=== PATIENT | female | born 1965 ===

== ENCOUNTER 2019-01-29 12:51 | Observation (INO) | payer MEDICAID ==
[2019-01-29 13:21] LABS: BASO # 0.05 K/mm3 (0.0-2.0); BASO % 0.7 % (0.0-3.0); EOS # 0.2 (0.0-0.7); EOS % 3.1 % (1.5-5.0); HEMOGLOBIN 10.4 g/dL (12.0-16.0); LYMPH # 1.8 (1.2-3.4); LYMPH % 25.7 % (22.0-35.0); MEAN CELL VOLUME 80.7 fl (80.0-105.0); MEAN CORPUSCULAR HEMOGLOBIN 24.8 pg (25.0-35.0); MEAN CORPUSCULAR HGB CONC 30.8 g/dl (31.0-37.0); MEAN PLATELET VOLUME 9.4 fl (7.0-11.0); MONO # 0.4 (0.1-0.6); RBC 4.19 10^6/uL (3.5-6.1); WHITE BLOOD COUNT 6.8 10^3/uL (4.5-11.0)
[2019-01-29 13:28] LABS: INR 1.08; PARTIAL THROMBOPLASTIN TIME 27.7 Seconds (26.9-38.3); PROTHROMBIN TIME 12.2 SECONDS (9.4-12.5)
[2019-01-29 13:30] LABS: ALB/GLOB RATIO 1.2 (1.1-1.8); ALBUMIN 4.1 g/dL (3.0-4.8); ALT/SGPT 20 U/L (7-56); AST/SGOT 25 U/L (14-36); BLOOD UREA NITROGEN 18 mg/dL (7-21); CALCIUM 9.5 mg/dL (8.4-10.5); GFR NON-AFRICAN AMERICAN > 60; HDL CHOLESTEROL 81 mg/dL (29-60)
--- NOTE | 2019-01-29 13:34 | CT ---
Date of service: 01/29/2019 PROCEDURE: CT HEAD WITHOUT CONTRAST. HISTORY: Code Stroke COMPARISON: None available. TECHNIQUE: Axial computed tomography images were obtained through the head/brain without intravenous contrast. Radiation dose: Total exam DLP = 802.55 mGy-cm. This CT exam was performed using one or more of the following dose reduction techniques: Automated exposure control, adjustment of the mA and/or kV according to patient size, and/or use of iterative reconstruction technique. FINDINGS: HEMORRHAGE: No intracranial hemorrhage. BRAIN: No mass effect or edema. No atrophy or chronic microvascular ischemic changes. VENTRICLES: Unremarkable. No hydrocephalus. CALVARIUM: Unremarkable. PARANASAL SINUSES: Unremarkable as visualized. No significant inflammatory changes. MASTOID AIR CELLS: Unremarkable as visualized. No inflammatory changes. OTHER FINDINGS: None. IMPRESSION: No acute intracranial findings
--- NOTE | 2019-01-29 13:36 | ED PDOC ---
Arrival/HPI - General Chief Complaint: Palpitations Time Seen by Provider: 01/29/19 12:54 Historian: Patient - History of Present Illness Narrative History of Present Illness (Text): 01/29/19 12:58 53 year old F with no significant pmh presents with cc of chest palpations w/ dry mouth since this morning. Patient reports that this morning she felt like her heart started racing for around 15 mins. It went away and returned for a shorter duration after. Per daughter, her mom appeared to respond to questions slower than she usually do. Her friend arrived that was with her when this occurred. She said that patient sounded different when she was talking and also was apparently confused a little bit. Patient mentioned that she went to her PCP weeks ago where it was found her blood pressure was high at the time. The patient agreed to monitor blood pressure. Patient denies any fevers, chills, headache, dizziness, chest pain, shortness of breath, cough, nausea, vomiting, nasal congestion, or any other complaint. 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 PCP: Dr. Tammy Hurst Time/Duration: 4-6 hours Symptom Onset: Sudden Symptom Course: Unchanged Activities at Onset: Light Context: Home Past Medical History - Provider Review Nursing Documentation Reviewed: Yes - Infectious Disease Hx of Infectious Diseases: None - Reproductive Menopause: Yes - Psychiatric Hx Substance Use: No Family/Social History - Physician Review Nursing Documentation Reviewed: Yes Family/Social History: Unknown Family HX Smoking Status: Never Smoked Hx Alcohol Use: No Hx Substance Use: No Allergies/Home Meds Allergies/Adverse Reactions: Allergies No Known Allergies Allergy (Verified 01/29/19 12:53) Home Medications: Home Meds Medication Instructions Recorded Confirmed No Known Home Med 01/29/19 01/29/19 Review of Systems - Physician Review All systems were reviewed & negative as marked: Yes - Review of Systems Constitutional: Normal Eyes: Normal ENT: Other (dry mouth) Respiratory: Normal Cardiovascular: Palpitations Gastrointestinal: Normal Genitourinary Female: Normal Musculoskeletal: Normal Skin: Normal Neurological: Speech Changes Endocrine: Normal Hemo/Lymphatic: Normal Psychiatric: Normal Physical Exam Vital Signs Temp Pulse Resp BP Pulse Ox 01/29/19 12:51 97.5 F L 98 H 18 182/91 H 100 Temperature: Afebrile Blood Pressure: Hypertensive Pulse: Regular Respiratory Rate: Normal Appearance: Positive for: Non-Toxic, Comfortable, Ill-Appearing Pain Distress: None Mental Status: Positive for: Alert and Oriented X 3 Finger Stick Blood Glucose: 123 - Systems Exam Head: Present: Atraumatic, Normocephalic Pupils: Present: PERRL Extroacular Muscles: Present: EOMI Conjunctiva: Present: Normal Neck: Present: Normal Range of Motion Respiratory/Chest: Present: Clear to Auscultation, Good Air Exchange. No: Respiratory Distress, Accessory Muscle Use Cardiovascular: Present: Regular Rate and Rhythm, Normal S1, S2. No: Murmurs Abdomen: No: Tenderness, Distention, Peritoneal Signs Back: Present: Normal Inspection Upper Extremity: Present: Normal Inspection. No: Cyanosis, Edema Lower Extremity: Present: Normal Inspection. No: Edema Neurological: Present: GCS=15, CN II-XII Intact, Speech Normal Skin: Present: Warm, Dry, Normal Color. No: Rashes Psychiatric: Present: Alert, Oriented x 3, Normal Insight, Normal Concentration Medical Decision Making ED Course and Treatment: 01/29/19 12:58 Impression: 53 year old F presents with cc of chest palpations w/ dry mouth, confusion and trouble speaking since 11:30am Differential Diagnosis included but are not limited to: TIA Plan: -- EKG -- Labs -- Chest X-ray -- Stroke team consult -- Reassess and disposition Prior Visits: Notes and results from previous visits were reviewed. Progress Notes: 01/29/19 13:03 Code stroke was called Case discussed with Dr. Lantigua Neurologist. The NIHSS is Zero. After she returned from CT her symptoms improved. Patient states she no longer felt has confusion or trouble speaking, just a dry mouth that's better as well. Still no weakess or numbness. We agreed that patient does not warrant tPA at this time due to symptoms almost completely resolved and rapidly improving. Will give aspirin 81mg PO. 01/29/19 13:15 NSR @ 84 bpm, nml qrs, nml axis, no motion artifect, no acute sttw abn. Case was discussed with 01/29/19 14:04 Dr Lantigua came to evaluate patient and he would also like to add Plavix 300mg PO, NS at 100ml/hr and permissive hypertension. He placed her head down. He ordered an MRI that he will follow. Creator : Siddhartha Higuera MD PROCEDURE: CT HEAD WITHOUT CONTRAST. IMPRESSION: No acute intracranial findings - Lab Interpretations Lab Results: PT 12.2 SECONDS (9.4-12.5) 01/29/19 13:10 INR 1.08 01/29/19 13:10 APTT 27.7 Seconds (26.9-38.3) 01/29/19 13:10 Total Bilirubin 0.2 mg/dL (0.2-1.3) 01/29/19 13:10 AST 25 U/L (14-36) 01/29/19 13:10 ALT 20 U/L (7-56) 01/29/19 13:10 Alkaline Phosphatase 76 U/L (38-126) 01/29/19 13:10 Total Protein 7.4 g/dL (5.8-8.3) 01/29/19 13:10 Albumin 4.1 g/dL (3.0-4.8) 01/29/19 13:10 Globulin 3.3 gm/dL 01/29/19 13:10 Albumin/Globulin Ratio 1.2 (1.1-1.8) 01/29/19 13:10 - RAD Interpretation Radiology Orders: 01/29/19 13:04 HEAD W/O (CODE STROKE) [CT] Stat CHEST PORTABLE [RAD] Stat NIHSS Scale ([place]) Time Performed: 12:54 - How Severe is the Stoke Baseline Level of Consciousness: 0=Alert LOC to Questions: 0=Both comments correct LOC to commands: 0=Obeys both correctly Best Gaze: 0=Normal Visual: 0=No visual loss Facial: 0=Normal Motor Arm - Left: 0=No drift Motor Arm - Right: 0=No drift Motor Leg - Left: 0=No drift Motor Leg - Right: 0=No drift Limb Ataxia: 0=Absent Sensory: 0=Normal Best Language: 0=No aphasia Dysarthia: 0=Normal articulation Extinction & Inattention (Neglect): 0=Normal, no object Score: 0 Risk Level: No Stroke Risk rTPA Inclusion/Exclusion - Refusal of Treatment Patient Refused Treatment: No - Inclusion Criteria for Altepase All of the below criteria for inclusion were reviewed: Yes Patient is 18 years or Older: Yes The Clinical Diagnosis of Ischemic Stroke That is Causing a Potentially Disabling Neurological Deficit: Yes Time of Onset is Well Established to be Less Than 270 Minute Before Treatment Would Begin: Yes Risk/Benefit Discussed With Patient/Family Member Present: No - Scribe Statement The provider has reviewed the documentation as recorded by the Corie Amos All medical record entries made by the Corie were at my direction and personally dictated by me. I have reviewed the chart and agree that the record accurately reflects my personal performance of the history, physical exam, medical decision making, and the department course for this patient. I have also personally directed, reviewed, and agree with the discharge instructions and disposition. Disposition/Present on Arrival - Present on Arrival Any Indicators Present on Arrival: No History of DVT/PE: No History of Uncontrolled Diabetes: No Urinary Catheter: No History of Decub. Ulcer: No History Surgical Site Infection Following: None - Disposition Have Diagnosis and Disposition been Completed?: Yes Diagnosis: TIA (transient ischemic attack) Disposition: HOSPITALIZED Disposition Time: 13:46 Patient Plan: Observation Condition: FAIR
[2019-01-29 13:41] LABS: LDL CHOLESTEROL 73 mg/dL (0-129)
[2019-01-29 13:44] LABS: TROPONIN I < 0.01 ng/mL
[2019-01-29] MEDS: Sodium Chloride 0.9% 1,000 ML IV SCH ×2 (14:10→23:59)
--- NOTE | 2019-01-29 14:22 | RAD ---
Date of service: 01/29/2019 HISTORY: Code Stroke COMPARISON: No prior. TECHNIQUE: 1 view obtained. FINDINGS: LUNGS: No active pulmonary disease. PLEURA: No significant pleural effusion identified, no pneumothorax apparent. CARDIOVASCULAR: Minimal aortic calcification Normal cardiac size. No pulmonary vascular congestion. OSSEOUS STRUCTURES: No significant abnormalities. VISUALIZED UPPER ABDOMEN: Normal. OTHER FINDINGS: None. IMPRESSION: No active disease.
--- NOTE | 2019-01-29 14:24 | CP.PCM.HP ---
<Gunner Prince - Last Filed: 01/29/19 15:26> History of Present Illness - History of Present Illness History of Present Illness: Medicine H&P for Dr. Marshall HPI: 53 year old female, no known significant past medical history, presents to our emergency department with new onset palpitations and lightheadedness that started this morning. Patient states around 10:40AM she was at work and noticed she was having difficulty balancing herself and felt lightheaded, she denied any loss of consciousness of fall. Her heart began racing and when attempting to speak to her coworker she had difficulty projecting her voice. She does not endorse facial drooping, headaches, blurred or changes in vision, chest pain, or shortness of breath. She has never experienced symptoms like this before. Recently, she went to her PMD, Dr. Hurst, where she was noted to have elevated blood pressure (she does not remember how high). At that time her PMD did not start any medication but recommended patient check her blood pressures and follow up regarding initiation of new medications. She states her blood pressu res have not been elevated. ROS negative, except that states in HPI. PMH: Denies PSH: Breast reduction, Gastric bypass FH: No history of stroke or SC in family. No history of cancer. SH: Denies tobacco, alcohol and drugs. Lives at home with children and . Works in [employer]. ALL: NKDA Meds: Multivitamins PMD: Dr. Hurst Present on Admission - Present on Admission Any Indicators Present on Admission: No Review of Systems - Constitutional Constitutional: absent: Chills, Fever, Headache, Weakness - EENT Eyes: absent: Blurred Vision, Change in Vision, Other Visual Disturbances, Loss of Vision Nose/Mouth/Throat: absent: Nasal Congestion, Nasal Discharge - Cardiovascular Cardiovascular: Palpitations, Rapid Heart Rate. absent: Chest Pain, Dyspnea, Leg Edema - Respiratory Respiratory: absent: Cough, Dyspnea - Gastrointestinal Gastrointestinal: absent: Abdominal Pain, Nausea, Vomiting - Genitourinary Genitourinary: absent: Difficulty Urinating, Dysuria - Musculoskeletal Musculoskeletal: absent: Back Pain, Neck Pain - Integumentary Integumentary: absent: Bleeding Lesions, Changing Lesions - Neurological Neurological: Abnormal Gait, Abnormal Speech, Lack of Coordination. absent: Confusion, Dizziness, Numbness, Focal Weakness, Headaches, Loss of Vision, Memory Loss, Sensory Deficit, Syncope, Tremor, Vertigo, Weakness - Psychiatric Psychiatric: absent: Anxiety, Depression Past Patient History - Infectious Disease Hx of Infectious Diseases: None - Past Social History Smoking Status: Never Smoked - PSYCHIATRIC Hx Substance Use: No Meds Allergies/Adverse Reactions: Allergies Allergy/AdvReac Type Severity Reaction Status Date / Time No Known Allergies Allergy Verified 01/29/19 12:53 Physical Exam - Constitutional Appears: Well, Non-toxic, No Acute Distress - Head Exam Head Exam: ATRAUMATIC, NORMAL INSPECTION, NORMOCEPHALIC - Eye Exam Eye Exam: EOMI - ENT Exam ENT Exam: Mucous Membranes Moist - Neck Exam Neck exam: Positive for: Full Rom, Normal Inspection - Respiratory Exam Respiratory Exam: NORMAL BREATHING PATTERN. absent: Wheezes, Respiratory Distress - Cardiovascular Exam Cardiovascular Exam: Tachycardia, REGULAR RHYTHM, +S1, +S2. absent: Systolic Murmur - GI/Abdominal Exam GI & Abdominal Exam: Normal Bowel Sounds, Soft. absent: Tenderness - Extremities Exam Extremities exam: Positive for: normal inspection, pedal pulses present. Negative for: calf tenderness, pedal edema - Neurological Exam Neurological exam: Alert, CN II-XII Intact, Oriented x3 - Expanded Neurological Exam Expanded Patient oriented to: person, place, time Speech: Fluid Speech Cranial nerves: EOM's Intact: Normal, Facial Palsey w/Forehead Movement: Normal, Facial P[place]y w/o Forehead Movement: Normal, Facial Sensation: Normal, Nystagmus: Normal, Tongue Deviation: Normal Ataxia: No Cerebellar Function: Finger to Nose: Normal, Heel to [place]: Normal Upper motor neuron: Babinski Sign: Normal, Pronator Drift: Normal, Sensory Extinction: Normal Sensory exam: Lower Extremity 2 Point Discrimination: Normal, Lower Extremity Light Touch: Normal, Lower Extremity Pin Prick: Normal, Upper Extremity 2 Point Discrimination: Normal, Upper Extremity Light Touch: Normal, Upper Extremity Pin Prick: Normal Neuro motor strength exam: Left Upper Extremity: 5, Right Upper Extremity: 5, Left Lower Extremity: 5, Right Lower Extremity: 5 Coma Scale Eye Opening: SPONTANEOUS Coma Scale Motor Response: OBEYS COMMANDS Coma Scale Verbal: Oriented Coma Scale Total: 15 - Psychiatric Exam Psychiatric exam: Normal Affect, Normal Mood - Skin Skin Exam: Dry, Intact, Normal Color, Warm Results - Vital Signs Recent Vital Signs: Last Vital Signs Temp 97.5 F L 03/27/19 12:51 Pulse 89 01/29/19 13:39 Resp 22 01/29/19 13:39 BP 148/89 01/29/19 13:39 Pulse Ox 100 01/29/19 13:39 - Labs Result Diagrams: 01/29/19 13:10 01/29/19 13:10 Labs: Laboratory Results - last 24 hr 01/29/19 01/29/19 01/29/19 13:07 13:10 13:10 WBC 6.8 RBC 4.19 Hgb 10.4 L Hct 33.8 L MCV 80.7 MCH 24.8 L MCHC 30.8 L RDW 16.0 H Plt Count 410 MPV 9.4 Neut % (Auto) 64.5 Lymph % (Auto) 25.7 Creek % (Auto) 6.0 Eos % (Auto) 3.1 Baso % (Auto) 0.7 Lymph # (Auto) 1.8 Creek # (Auto) 0.4 Eos # (Auto) 0.2 Baso # (Auto) 0.05 Absolute Neuts (auto) 4.40 PT 12.2 INR 1.08 APTT 27.7 Sodium Potassium Chloride Carbon Dioxide Anion Gap BUN Creatinine Est GFR ( Amer) Est GFR (Non-Af Amer) POC Glucose (mg/dL) 123 H Random Glucose Calcium Total Bilirubin AST ALT Alkaline Phosphatase Troponin I Total Protein Albumin Globulin Albumin/Globulin Ratio Triglycerides Cholesterol LDL Cholesterol Direct HDL Cholesterol 01/29/19 13:10 WBC RBC Hgb Hct MCV MCH MCHC RDW Plt Count MPV Neut % (Auto) Lymph % (Auto) Creek % (Auto) Eos % (Auto) Baso % (Auto) Lymph # (Auto) Creek # (Auto) Eos # (Auto) Baso # (Auto) Absolute Neuts (auto) PT INR APTT Sodium 137 Potassium 4.6 Chloride 100 Carbon Dioxide 28 Anion Gap 13 BUN 18 Creatinine 0.6 L Est GFR ( Amer) > 60 Est GFR (Non-Af Amer) > 60 POC Glucose (mg/dL) Random Glucose 131 H Calcium 9.5 Total Bilirubin 0.2 AST 25 ALT 20 Alkaline Phosphatase 76 Troponin I < 0.01 Total Protein 7.4 Albumin 4.1 Globulin 3.3 Albumin/Globulin Ratio 1.2 Triglycerides 45 Cholesterol 158 LDL Cholesterol Direct 73 HDL Cholesterol 81 H Assessment & Plan - Assessment and Plan (Free Text) Assessment: 53F with no known significant past medical history, presents to our emergency department with lightheadedness and palpitations, admitted for stroke rule out. Plan: Code Stroke - EKG 01/29: NSR w/ no ST/T wave changes - CXR 01/29: no active disease - CT head 01/29: no intracranial abnormalities - Aspirin 81mg QD - Lipitor 40mg QD - CBC, CMP, and lipid panel within normal limits - F/u MRA neck - F/u MRI brain - F/u MRA head - F/u ECHO - F/u EEG study - F/u A1c, B12/Folate, TSH, T4, Vit D, Homocysteine levels - Fall and aspiration precautions - Formal swallow evaluation - Neurology following PPX DVT: SCDs GI: Not indicated at this time Patient plan reviewed and discussed with Dr. Joanna Prince PGY1 <Conrado Marshall - Last Filed: 01/29/19 17:34> Results - Vital Signs Recent Vital Signs: Last Vital Signs Temp 97.5 F L 01/29/19 12:51 Pulse 78 01/29/19 16:55 Resp 18 01/29/19 16:55 BP 135/87 01/29/19 16:17 Pulse Ox 98 01/29/19 16:17 - Labs Result Diagrams: 01/29/19 13:10 01/29/19 13:10 Labs: Laboratory Results - last 24 hr 01/29/19 01/29/19 01/29/19 13:07 13:10 13:10 WBC 6.8 RBC 4.19 Hgb 10.4 L Hct 33.8 L MCV 80.7 MCH 24.8 L MCHC 30.8 L RDW 16.0 H Plt Count 410 MPV 9.4 Neut % (Auto) 64.5 Lymph % (Auto) 25.7 Creek % (Auto) 6.0 Eos % (Auto) 3.1 Baso % (Auto) 0.7 Lymph # (Auto) 1.8 Creek # (Auto) 0.4 Eos # (Auto) 0.2 Baso # (Auto) 0.05 Absolute Neuts (auto) 4.40 PT 12.2 INR 1.08 APTT 27.7 Sodium Potassium Chloride Carbon Dioxide Anion Gap BUN Creatinine Est GFR ( Amer) Est GFR (Non-Af Amer) POC Glucose (mg/dL) 123 H Random Glucose Hemoglobin A1c Calcium Total Bilirubin AST ALT Alkaline Phosphatase Troponin I Total Protein Albumin Globulin Albumin/Globulin Ratio Triglycerides Cholesterol LDL Cholesterol Direct HDL Cholesterol Free T4 TSH 3rd Generation BBK History Checked 01/29/19 01/29/19 01/29/19 13:10 13:10 14:30 WBC RBC Hgb Hct MCV MCH MCHC RDW Plt Count MPV Neut % (Auto) Lymph % (Auto) Creek % (Auto) Eos % (Auto) Baso % (Auto) Lymph # (Auto) Creek # (Auto) Eos # (Auto) Baso # (Auto) Absolute Neuts (auto) PT INR APTT Sodium 137 Potassium 4.6 Chloride 100 Carbon Dioxide 28 Anion Gap 13 BUN 18 Creatinine 0.6 L Est GFR ( Amer) > 60 Est GFR (Non-Af Amer) > 60 POC Glucose (mg/dL) Random Glucose 131 H Hemoglobin A1c 5.9 Calcium 9.5 Total Bilirubin 0.2 AST 25 ALT 20 Alkaline Phosphatase 76 Troponin I < 0.01 Total Protein 7.4 Albumin 4.1 Globulin 3.3 Albumin/Globulin Ratio 1.2 Triglycerides 45 Cholesterol 158 LDL Cholesterol Direct 73 HDL Cholesterol 81 H Free T4 0.84 TSH 3rd Generation 1.32 BBK History Checked 01/29/19 15:39 WBC RBC Hgb Hct MCV MCH MCHC RDW Plt Count MPV Neut % (Auto) Lymph % (Auto) Creek % (Auto) Eos % (Auto) Baso % (Auto) Lymph # (Auto) Creek # (Auto) Eos # (Auto) Baso # (Auto) Absolute Neuts (auto) PT INR APTT Sodium Potassium Chloride Carbon Dioxide Anion Gap BUN Creatinine Est GFR ( Amer) Est GFR (Non-Af Amer) POC Glucose (mg/dL) Random Glucose Hemoglobin A1c Calcium Total Bilirubin AST ALT Alkaline Phosphatase Troponin I Total Protein Albumin Globulin Albumin/Globulin Ratio Triglycerides Cholesterol LDL Cholesterol Direct HDL Cholesterol Free T4 TSH 3rd Generation BBK History Checked No verified bt Attending/Attestation - Attestation I have personally seen and examined this patient.: Yes I have fully participated in the care of the patient.: Yes I have reviewed all pertinent clinical information: Yes Notes (Text): 01/29/19 17:29 53 year old female with past medical history of ?recently diagnosed hypertension, not on any medications, who presented with complaint of transient confusion, trouble with speech and palpitations, now resolved. Admitted for possible TIA r/o CVA. CT head is negative for acute findings. Neurology evaluation was appreciated and patient received aspirin and plavix in ER. Started on statin. Ordered for MRI/MRA, echocardiogram and PT evaluation. Will obtain TSH and monitor on telemetry unit. BP was initially elevated but improved without medications. Will monitor for now. Conrado Marshall MD Hospitalist.
[2019-01-29 15:02] LABS: FREE T4 0.84 ng/dL (0.78-2.19)
--- NOTE | 2019-01-29 16:00 | CP.PCM.CON ---
<Ellis Connelly - Last Filed: 01/29/19 16:08> History of Present Illness - History of Present Illness History of Present Illness: Ellis Connelly PGY2 Neurology Consult Note for Dr. Lantigua Consult requested by: Dr. Casillas 53 year old female with no known significant past medical history, presented with confusion, trouble speaking and slight facial droop. Family at bedside stated patient was unable to speak normally and seemed confused earlier today around 11am. Patient states she felt confused and it was hard for her to express what she wanted to say. She also felt has her balance was off. She never had symptoms like this before. She was also noted to have elevated blood pressure in the ED. She states her symptoms have improved. Patient denies headaches, change in vision, chest pain, palpitations or any other complaints at this time. PMH: Denies PSH: Breast reduction, Gastric bypass FH: No history of stroke or MS in family. No history of cancer. SH: Denies tobacco, alcohol and drugs. Lives at home with children and . Works in [employer]. ALL: NKDA Meds: Multivitamins PMD: Dr. Hurst Review of Systems - Constitutional Constitutional: absent: Excessive Sweating, Headache, Weakness - Cardiovascular Cardiovascular: absent: Chest Pain, Lightheadedness, Palpitations - Respiratory Respiratory: absent: Dyspnea - Gastrointestinal Gastrointestinal: absent: Nausea, Vomiting - Neurological Neurological: Disequilibrium. absent: Confusion, Numbness, Loss of Vision, Paresthesias, Sensory Deficit, Syncope, Tingling, Weakness Past Patient History - Infectious Disease Hx of Infectious Diseases: None - Past Social History Smoking Status: Never Smoked - PSYCHIATRIC Hx Substance Use: No Meds Allergies/Adverse Reactions: Allergies Allergy/AdvReac Type Severity Reaction Status Date / Time No Known Allergies Allergy Verified 01/29/19 12:53 - Medications Medications: Current Medications Aspirin (Ecotrin) 81 mg PO DAILY EJ Atorvastatin Calcium (Lipitor) 40 mg PO DAILY EJ Sodium Chloride (Sodium Chloride 0.9%) 1,000 mls @ 100 mls/hr IV .Q10H EJ Last Admin: 01/29/19 14:10 Dose: 100 mls/hr Physical Exam - Constitutional Appears: Non-toxic, No Acute Distress - Head Exam Head Exam: ATRAUMATIC, NORMAL INSPECTION, NORMOCEPHALIC - Eye Exam Eye Exam: EOMI, Normal appearance, PERRL - Respiratory Exam Respiratory Exam: Clear to Auscultation Bilateral, NORMAL BREATHING PATTERN - Cardiovascular Exam Cardiovascular Exam: REGULAR RHYTHM, +S1, +S2 - GI/Abdominal Exam GI & Abdominal Exam: Soft - Extremities Exam Extremities exam: Positive for: full ROM, pedal pulses present. Negative for: pedal edema - Neurological Exam Neurological exam: Alert, CN II-XII Intact, Oriented x3 Additional comments: Slight right sided facial droop, right pronator drift, reflexes brisk B/L, upper and lower extremity strength 5/5 B/L, normal sensation, Results - Vital Signs Recent Vital Signs: Last Vital Signs Temp 97.5 F L 01/29/19 12:51 Pulse 75 01/29/19 15:00 Resp 17 01/29/19 15:00 BP 135/87 01/29/19 15:00 Pulse Ox 99 01/29/19 15:00 - Labs Result Diagrams: 01/29/19 13:10 01/29/19 13:10 Labs: Laboratory Results - last 24 hr 01/29/19 01/29/19 01/29/19 13:07 13:10 13:10 WBC 6.8 RBC 4.19 Hgb 10.4 L Hct 33.8 L MCV 80.7 MCH 24.8 L MCHC 30.8 L RDW 16.0 H Plt Count 410 MPV 9.4 Neut % (Auto) 64.5 Lymph % (Auto) 25.7 [place] % (Auto) 6.0 Eos % (Auto) 3.1 Baso % (Auto) 0.7 Lymph # (Auto) 1.8 [place] # (Auto) 0.4 Eos # (Auto) 0.2 Baso # (Auto) 0.05 Absolute Neuts (auto) 4.40 PT 12.2 INR 1.08 APTT 27.7 Sodium Potassium Chloride Carbon Dioxide Anion Gap BUN Creatinine Est GFR ( Amer) Est GFR (Non-Af Amer) POC Glucose (mg/dL) 123 H Random Glucose Hemoglobin A1c Calcium Total Bilirubin AST ALT Alkaline Phosphatase Troponin I Total Protein Albumin Globulin Albumin/Globulin Ratio Triglycerides Cholesterol LDL Cholesterol Direct HDL Cholesterol Free T4 TSH 3rd Generation 01/29/19 01/29/19 01/29/19 13:10 13:10 14:30 WBC RBC Hgb Hct MCV MCH MCHC RDW Plt Count MPV Neut % (Auto) Lymph % (Auto) [place] % (Auto) Eos % (Auto) Baso % (Auto) Lymph # (Auto) [place] # (Auto) Eos # (Auto) Baso # (Auto) Absolute Neuts (auto) PT INR APTT Sodium 137 Potassium 4.6 Chloride 100 Carbon Dioxide 28 Anion Gap 13 BUN 18 Creatinine 0.6 L Est GFR ( Amer) > 60 Est GFR (Non-Af Amer) > 60 POC Glucose (mg/dL) Random Glucose 131 H Hemoglobin A1c 5.9 Calcium 9.5 Total Bilirubin 0.2 AST 25 ALT 20 Alkaline Phosphatase 76 Troponin I < 0.01 Total Protein 7.4 Albumin 4.1 Globulin 3.3 Albumin/Globulin Ratio 1.2 Triglycerides 45 Cholesterol 158 LDL Cholesterol Direct 73 HDL Cholesterol 81 H Free T4 0.84 TSH 3rd Generation 1.32 Assessment & Plan - Assessment and Plan (Free Text) Plan: TIA rule out Stroke - EKG NSR w/ no ST/T wave changes - CT head: no intracranial abnormalities - MRA head and neck bundle - MRI brain - ECHO - EEG - Aspirin 81mg - Plavix 300mg - Lipitor 40mg - NS@100 - lipid panel within normal limits - A1c, B12/Folate, TSH, T4, Vit D, Homocysteine - Fall and aspiration precautions - Formal swallow evaluation - permissive HTN - continue to monitor <Nile Lantigua - Last Filed: 01/29/19 18:59> Meds - Medications Medications: Current Medications Aspirin (Ecotrin) 81 mg PO DAILY EJ Atorvastatin Calcium (Lipitor) 40 mg PO DAILY [facility] Sodium Chloride (Sodium Chloride 0.9%) 1,000 mls @ 100 mls/hr IV .Q10H EJ Last Admin: 01/29/19 14:10 Dose: 100 mls/hr Results - Vital Signs Recent Vital Signs: Last Vital Signs Temp 98.3 F 01/29/19 18:00 Pulse 73 01/29/19 18:00 Resp 18 01/29/19 18:00 BP 144/76 01/29/19 18:00 Pulse Ox 98 01/29/19 16:17 - Labs Result Diagrams: 01/29/19 13:10 01/29/19 13:10 Labs: Laboratory Results - last 24 hr 01/29/19 01/29/19 01/29/19 13:07 13:10 13:10 WBC 6.8 RBC 4.19 Hgb 10.4 L Hct 33.8 L MCV 80.7 MCH 24.8 L MCHC 30.8 L RDW 16.0 H Plt Count 410 MPV 9.4 Neut % (Auto) 64.5 Lymph % (Auto) 25.7 [place] % (Auto) 6.0 Eos % (Auto) 3.1 Baso % (Auto) 0.7 Lymph # (Auto) 1.8 [place] # (Auto) 0.4 Eos # (Auto) 0.2 Baso # (Auto) 0.05 Absolute Neuts (auto) 4.40 PT 12.2 INR 1.08 APTT 27.7 Sodium Potassium Chloride Carbon Dioxide Anion Gap BUN Creatinine Est GFR ( Amer) Est GFR (Non-Af Amer) POC Glucose (mg/dL) 123 H Random Glucose Hemoglobin A1c Calcium Total Bilirubin AST ALT Alkaline Phosphatase Troponin I Total Protein Albumin Globulin Albumin/Globulin Ratio Triglycerides Cholesterol LDL Cholesterol Direct HDL Cholesterol Free T4 TSH 3rd Generation Blood Type Antibody Screen BBK History Checked 01/29/19 01/29/19 01/29/19 13:10 13:10 14:30 WBC RBC Hgb Hct MCV MCH MCHC RDW Plt Count MPV Neut % (Auto) Lymph % (Auto) [place] % (Auto) Eos % (Auto) Baso % (Auto) Lymph # (Auto) [place] # (Auto) Eos # (Auto) Baso # (Auto) Absolute Neuts (auto) PT INR APTT Sodium 137 Potassium 4.6 Chloride 100 Carbon Dioxide 28 Anion Gap 13 BUN 18 Creatinine 0.6 L Est GFR ( Amer) > 60 Est GFR (Non-Af Amer) > 60 POC Glucose (mg/dL) Random Glucose 131 H Hemoglobin A1c 5.9 Calcium 9.5 Total Bilirubin 0.2 AST 25 ALT 20 Alkaline Phosphatase 76 Troponin I < 0.01 Total Protein 7.4 Albumin 4.1 Globulin 3.3 Albumin/Globulin Ratio 1.2 Triglycerides 45 Cholesterol 158 LDL Cholesterol Direct 73 HDL Cholesterol 81 H Free T4 0.84 TSH 3rd Generation 1.32 Blood Type Antibody Screen BBK History Checked 01/29/19 15:39 WBC RBC Hgb Hct MCV MCH MCHC RDW Plt Count MPV Neut % (Auto) Lymph % (Auto) [place] % (Auto) Eos % (Auto) Baso % (Auto) Lymph # (Auto) [place] # (Auto) Eos # (Auto) Baso # (Auto) Absolute Neuts (auto) PT INR APTT Sodium Potassium Chloride Carbon Dioxide Anion Gap BUN Creatinine Est GFR ( Amer) Est GFR (Non-Af Amer) POC Glucose (mg/dL) Random Glucose Hemoglobin A1c Calcium Total Bilirubin AST ALT Alkaline Phosphatase Troponin I Total Protein Albumin Globulin Albumin/Globulin Ratio Triglycerides Cholesterol LDL Cholesterol Direct HDL Cholesterol Free T4 TSH 3rd Generation Blood Type B NEGATIVE Antibody Screen Negative BBK History Checked No verified bt Attending/Attestation - Attestation I have personally seen and examined this patient.: Yes I have fully participated in the care of the patient.: Yes I have reviewed all pertinent clinical information: Yes Notes (Text): I agree with the assessment and plan. Will continue management and work-up for possible ischemic stroke or TIA. Thank you for this consultation.
[2019-01-29 17:15] VITALS: BMI 25.9
--- NOTE | 2019-01-29 18:46 | CARD ---
APPROVED REPORT Date of service: 01/29/2019 EKG Measurement Heart [id number] MD [id number] <Conclusion> Normal sinus rhythm Cannot rule out Anterior infarct, age undetermined Abnormal ECG
[2019-01-29 21:58] LABS: FOLATE > 20.0 ng/mL
[2019-01-30 07:45] LABS: ALBUMIN 3.3 g/dL (3.0-4.8); ALT/SGPT 19 U/L (7-56); AST/SGOT 25 U/L (14-36); BLOOD UREA NITROGEN 11 mg/dL (7-21); CALCIUM 8.7 mg/dL (8.4-10.5); GFR NON-AFRICAN AMERICAN > 60
[2019-01-30 08:27] LABS: IRON 26 ug/dL (45-180)
[2019-01-30 08:41] LABS: % IRON SATURATION 7 % (20-55); TOTAL IRON BINDING CAPACITY 362 ug/dL (265-497)
[2019-01-30 08:53] LABS: HEMOGLOBIN 9.7 g/dL (12.0-16.0); MEAN CELL VOLUME 80.6 fl (80.0-105.0); MEAN CORPUSCULAR HEMOGLOBIN 24.4 pg (25.0-35.0); MEAN CORPUSCULAR HGB CONC 30.3 g/dl (31.0-37.0); MEAN PLATELET VOLUME 9.9 fl (7.0-11.0); RBC 3.97 10^6/uL (3.5-6.1); RED CELL DISTRIBUTION WIDTH 16.2 % (11.5-14.5); WHITE BLOOD COUNT 5.1 10^3/uL (4.5-11.0)
--- NOTE | 2019-01-30 10:20 | CP.PCM.PN ---
<Ellis Connelly - Last Filed: 01/30/19 17:27> Subjective - Date & Time of Evaluation Date of Evaluation: 01/30/19 Time of Evaluation: 06:00 - Subjective Subjective: Patient seen and evaluated bedside. No acute issues overnight. Patient states she feels much better today, denies any confusion, trouble speaking, headaches, vision changes or any other complaints. Objective - Vital Signs/Intake and Output Vital Signs (last 24 hours): Temp Pulse Resp BP Pulse Ox 97.9 F 77 19 158/85 H 98 01/30/19 06:00 01/30/19 09:42 01/30/19 06:00 01/30/19 09:42 01/30/19 06:00 Intake and Output: 01/30/19 01/30/19 06:59 18:59 Intake Total 2220 Output Total 3 Balance 2217 - Medications Medications: Current Medications Aspirin (Ecotrin) 81 mg PO DAILY [facility] Last Admin: 01/30/19 09:40 Dose: 81 mg Atorvastatin Calcium (Lipitor) 40 mg PO DAILY [facility] - Labs Labs: 01/30/19 06:30 01/30/19 06:30 PT 12.2 SECONDS (9.4-12.5) 01/29/19 13:10 INR 1.08 01/29/19 13:10 APTT 27.7 Seconds (26.9-38.3) 01/29/19 13:10 - Constitutional Appears: Well, Non-toxic, No Acute Distress - Head Exam Head Exam: ATRAUMATIC, NORMAL INSPECTION, NORMOCEPHALIC - Eye Exam Eye Exam: EOMI, Normal appearance, PERRL - ENT Exam ENT Exam: Mucous Membranes Moist - Respiratory Exam Respiratory Exam: Clear to Ausculation Bilateral - Cardiovascular Exam Cardiovascular Exam: REGULAR RHYTHM, +S1, +S2 - Neurological Exam Neurological Exam: Alert, Awake, CN II-XII Intact, Oriented x3 Neuro motor strength exam: Left Upper Extremity: 5, Right Upper Extremity: 5, Le ft Lower Extremity: 5, Right Lower Extremity: 5 Additional comments: slight right pronator drift, slight right facial droop, cerebellar function in tact, - Psychiatric Exam Psychiatric exam: Normal Mood Assessment and Plan - Assessment and Plan (Free Text) Plan: TIA rule out ichemic stroke - no focal deficits appreciated - EKG NSR w/ no ST/T wave changes - CT head: no intracranial abnormalities - MRA head and neck bundle - MRI brain - ECHO - EEG - Aspirin 81mg - Lipitor 40mg - NS@100 - B12/Folate, TSH, T4, Vit D, Homocysteine within normal limits - Hemoglobin A1C: 5.9 - cholesterol 158 LDL: 73 - Fall and aspiration precautions - continue to monitor <Nile Lantigua - Last Filed: 01/31/19 16:23> Objective - Vital Signs/Intake and Output Vital Signs (last 24 hours): Temp Pulse Resp BP Pulse Ox 98.2 F 73 20 156/82 H 94 L 01/31/19 11:58 01/31/19 14:00 01/31/19 11:58 01/31/19 11:58 01/31/19 06:00 Intake and Output: 01/31/19 01/31/19 06:59 18:59 Intake Total 2392 Balance 2392 - Medications Medications: Current Medications Aspirin (Ecotrin) 81 mg PO DAILY [facility] Last Admin: 01/31/19 09:15 Dose: 81 mg Atorvastatin Calcium (Lipitor) 40 mg PO DAILY [facility] Last Admin: 01/31/19 09:15 Dose: 40 mg Diphenhydramine HCl (Benadryl) 50 mg PO HS PRN PRN Reason: Insomnia Last Admin: 01/30/19 23:14 Dose: 50 mg Docusate Sodium (Colace) 100 mg PO BID [facility] Enoxaparin Sodium (Lovenox) 30 mg SC DAILY [facility]; Protocol Last Admin: 01/31/19 11:55 Dose: 30 mg Ferrous Sulfate (Feosol) 324 mg PO BID [facility] - Labs Labs: 01/31/19 06:30 01/31/19 06:30 PT 12.2 SECONDS (9.4-12.5) 01/29/19 13:10 INR 1.08 01/29/19 13:10 APTT 27.7 Seconds (26.9-38.3) 01/29/19 13:10 Attending/Attestation - Attestation I have personally seen and examined this patient.: Yes I have fully participated in the care of the patient.: Yes I have reviewed all pertinent clinical information, including history, physical exam and plan: Yes Notes (Text): I agree with the assessment and plan. Will continue work-up for possible stroke.
--- NOTE | 2019-01-30 19:15 | CP.PCM.PN ---
<Gunnar Pettit - Last Filed: 01/30/19 19:12> Subjective - Date & Time of Evaluation Date of Evaluation: 01/30/19 Time of Evaluation: 08:00 - Subjective Subjective: Gunnar Pettit PGY1 Medicine Progress Note for Dr. Marshall Patient seen at bedside. No adverse overnight events. Patient denies palpitations, lightheadedness, dizziness, nausea, vomiting, diarrhea, fever, chills. A full 12 point ROS was conducted and unremarkable except as stated above. Objective - Vital Signs/Intake and Output Vital Signs (last 24 hours): Temp Pulse Resp BP Pulse Ox 98.4 F 61 18 134/86 98 01/30/19 18:00 01/30/19 18:00 01/30/19 18:00 01/30/19 18:00 01/30/19 06:00 - Medications Medications: Current Medications Aspirin (Ecotrin) 81 mg PO DAILY [facility] Last Admin: 01/30/19 09:40 Dose: 81 mg Atorvastatin Calcium (Lipitor) 40 mg PO DAILY [facility] Last Admin: 01/30/19 13:06 Dose: 40 mg - Labs Labs: 01/30/19 06:30 01/30/19 06:30 PT 12.2 SECONDS (9.4-12.5) 01/29/19 13:10 INR 1.08 01/29/19 13:10 APTT 27.7 Seconds (26.9-38.3) 01/29/19 13:10 - Constitutional Appears: Well, Non-toxic, No Acute Distress - Head Exam Head Exam: ATRAUMATIC, NORMAL INSPECTION, NORMOCEPHALIC - Eye Exam Eye Exam: EOMI - ENT Exam ENT Exam: Mucous Membranes Moist - Neck Exam Neck exam: Positive for: Full Rom, Normal Inspection - Respiratory Exam Respiratory Exam: NORMAL BREATHING PATTERN. absent: Wheezes, Respiratory Distress - Cardiovascular Exam Cardiovascular Exam: Tachycardia, REGULAR RHYTHM, +S1, +S2. absent: Systolic Murmur - GI/Abdominal Exam GI & Abdominal Exam: Normal Bowel Sounds, Soft. absent: Tenderness - Extremities Exam Extremities exam: Positive for: normal inspection, pedal pulses present. Negative for: calf tenderness, pedal edema - Neurological Exam Neurological exam: Alert, CN II-XII Intact, Oriented x3 Assessment and Plan - Assessment and Plan (Free Text) Assessment: Patient is a 53F with no known significant past medical history, presents to the emergency department with lightheadedness and palpitations. Patient was a code stroke. Admitted to telemetry. Plan: TIA - c/w Aspirin 81mg - c/w Lipitor 40mg - CT head: no intracranial abnormalities - pending MRA head and neck bundle - pending MRI brain - ECHO was done; pending official report - Neurology on consult (Dr. Lantigua). Recs appreciated. - c/w Fall and aspiration precautions - PT recommends discharge home Anemia - Patients symptoms may be associated with anemia - Hgb stable at this time - iron studies - Monitor. No signs of overt bleeding - Talked to patient's PMD (Dr. Hurst) - last Hgb was 11.3. Last colonoscopy 2-3 years ago and was normal. DVT/GI ppx: not indicated Diet: HHD Dispo: Monitor patient on telemetry. Pending MRI. Case was discussed and reviewed with Attending Physician, Dr. Marshall <Conrado Marshall - Last Filed: 01/31/19 07:44> Objective - Vital Signs/Intake and Output Vital Signs (last 24 hours): Temp Pulse Resp BP Pulse Ox 97.9 F 61 18 138/84 94 L 01/31/19 06:00 01/31/19 06:00 01/31/19 06:00 01/31/19 06:00 01/31/19 06:00 Intake and Output: 01/31/19 01/31/19 06:59 18:59 Intake Total 2392 Balance 2392 - Medications Medications: Current Medications Aspirin (Ecotrin) 81 mg PO DAILY [facility] Last Admin: 01/30/19 09:40 Dose: 81 mg Atorvastatin Calcium (Lipitor) 40 mg PO DAILY [facility] Last Admin: 01/30/19 13:06 Dose: 40 mg Diphenhydramine HCl (Benadryl) 50 mg PO HS PRN PRN Reason: Insomnia Last Admin: 01/30/19 23:14 Dose: 50 mg - Labs Labs: 01/31/19 06:30 01/31/19 06:30 PT 12.2 SECONDS (9.4-12.5) 01/29/19 13:10 INR 1.08 01/29/19 13:10 APTT 27.7 Seconds (26.9-38.3) 03/27/19 13:10 Attending/Attestation - Attestation I have personally seen and examined this patient.: Yes I have fully participated in the care of the patient.: Yes I have reviewed all pertinent clinical information, including history, physical exam and plan: Yes Notes (Text): 01/30/19 53 year old female with past medical history of ?recently diagnosed hypertension, not on any medications, who presented with complaint of transient confusion, trouble with speech and palpitations, now resolved. Admitted for possible TIA r/o CVA. CT head is negative for acute findings. MRI/MRA is pending. Echocardiogram is done today with pending report. Neurology is following and patient is on aspirin and statin. Started on statin. BP was initially elevated but improved without medications. Will monitor for now. Patient noted to have iron deficiency anemia. Patient denies any bleeding. Las t EGD/colonoscopy was few years prior. Can start iron supplements on discharge. Recommended outpatient GI follow up. Conrado Marshall MD Hospitalist.
--- NOTE | 2019-01-30 19:41 | CARD ---
APPROVED REPORT Date of service: 01/30/2019 EXAM: Two-dimensional and M-mode echocardiogram with Doppler and color Doppler. INDICATION R/O EMBOLIC STROKE 2D DIMENSIONS Left Atrium (2D)4.5 (1.6-4.0cm)IVSd1.0 (0.7-1.1cm) LVDd4.1 (3.9-5.9cm)PWd1.1 (0.7-1.1cm) LVDs2.6 (2.5-4.0cm)FS (%) 36.9 % LVEF (%)67.3 (>50%) M-Mode DIMENSIONS Aortic Root3.30 (2.2-3.7cm)Aortic Cusp Exc.1.70 (1.5-2.0cm) Aortic Valve AoV Peak Yrvuckak249.0cm/Chase Peak GR.10mmHg Mitral Valve MV E Golfupxd44.2cm/sMV A Tmdbbpus21.4cm/sE/A ratio1.1 TDI E/Lateral E'0.0E/Medial E'0.0 Tricuspid Valve TR Peak [id number]/sRAP [id number] Peak Gr.33mmHg [id number] LEFT VENTRICLE The left ventricle is normal size. The left ventricular function is normal. The left ventricular ejection fraction is within the normal range.Ej.Fr: 67%. RIGHT VENTRICLE The right ventricle is normal size. The right ventricular systolic function is normal. ATRIA Lt. Atrium shows Mild Enlargement. The right atrium size is normal. Atrial Septum shows Aneurysmal Bulge toward Lt.Atrium. AORTIC VALVE The aortic valve is normal in structure. MITRAL VALVE The mitral valve is normal in structure. Mitral regurgitation is trace. TRICUSPID VALVE The tricuspid valve is normal in structure. There is mild to moderate tricuspid regurgitation.RVSP 43mm Hg. Mild Pulmonary Hypertension. PERICARDIAL EFFUSION There is no pericardial effusion. <Conclusion> The left ventricle is normal size. The left ventricular function is normal. The left ventricular ejection fraction is within the normal range.Ej.Fr: 67%. The right ventricle is normal size. The right ventricular systolic function is normal. Lt. Atrium shows Mild Enlargement. The right atrium size is normal. Atrial Septum shows Aneurysmal Bulge toward Lt.Atrium. The aortic valve is normal in structure. The mitral valve is normal in structure. Mitral regurgitation is trace. The tricuspid valve is normal in structure. There is mild to moderate tricuspid regurgitation.RVSP 43mm Hg. Mild Pulmonary Hypertension. There is no pericardial effusion.
[2019-01-31 06:47] LABS: HEMOGLOBIN 10.1 g/dL (12.0-16.0); MEAN CORPUSCULAR HEMOGLOBIN 24.3 pg (25.0-35.0); MEAN CORPUSCULAR HGB CONC 30.1 g/dl (31.0-37.0); MEAN PLATELET VOLUME 9.9 fl (7.0-11.0); RBC 4.15 10^6/uL (3.5-6.1); RED CELL DISTRIBUTION WIDTH 16.2 % (11.5-14.5); WHITE BLOOD COUNT 5.6 10^3/uL (4.5-11.0)
[2019-01-31 07:09] LABS: ALB/GLOB RATIO 1.2 (1.1-1.8); ALBUMIN 3.7 g/dL (3.0-4.8); ALT/SGPT 19 U/L (7-56); AST/SGOT 34 U/L (14-36); BLOOD UREA NITROGEN 10 mg/dL (7-21); CALCIUM 9.3 mg/dL (8.4-10.5); GFR NON-AFRICAN AMERICAN > 60
[2019-01-31] MEDS: Enoxaparin 30 mg Syringe SC SCH (11:55)
--- NOTE | 2019-01-31 12:56 | PCM.EEG ---
Electroencephalogram Report - Electroencephalogram Report Procedure Date: 01/30/19 Medication: ASA, Loeazepam Interpretation: Technical Information: This was a 16 -channel EEG, 1-channel EKG routine EEG performed using an Entrec machine. Electrodes were applied using the 10/20 international placement system. Start; 14;52 End; 15;42 Total 50 min Clinical Information: syncope During resting wakefulness there was a symmetric posterior dominant rhythm at 8 .5-9.5 Hz, 30-50 uV, which was reactive to eye opening and closing. Drowsiness (14;56) was associated with fragmentation of the posterior dominant rhythm and with slow roving eye movements. Light sleep (15;13) was recorded and was characterized by central vertex waves, sleep spindles, and bilateral theta slowing. Hyperventilation was performed no lateralaizing abnormalities seen. Photic stimulation was performed and there were no changes on the record. Focal abnormality; none ECG was associated with a normal sinus rhythm. Impression: This is a normal awake drowsy and sleep electroencephalogram.
--- NOTE | 2019-01-31 15:13 | CP.PCM.PN ---
<Gunner Prince - Last Filed: 01/31/19 15:23> Subjective - Date & Time of Evaluation Date of Evaluation: 01/31/19 Time of Evaluation: 15:11 - Subjective Subjective: Medicine Progress Note for Dr. Marshall 53F seen and evaluated at bedside this morning. No acute events overnight. No complaints this morning. Patient could not tolerate MRI machine, will reattempt today with medication. Denies f/c, n/v/d, SOB, CP, or urinary symptoms. Objective - Vital Signs/Intake and Output Vital Signs (last 24 hours): Temp Pulse Resp BP Pulse Ox 98.2 F 64 20 156/82 H 94 L 01/31/19 11:58 01/31/19 11:58 01/31/19 11:58 01/31/19 11:58 01/31/19 06:00 Intake and Output: 01/31/19 01/31/19 06:59 18:59 Intake Total 2392 Balance 2392 - Medications Medications: Current Medications Aspirin (Ecotrin) 81 mg PO DAILY [facility] Last Admin: 01/31/19 09:15 Dose: 81 mg Atorvastatin Calcium (Lipitor) 40 mg PO DAILY [facility] Last Admin: 01/31/19 09:15 Dose: 40 mg Diphenhydramine HCl (Benadryl) 50 mg PO HS PRN PRN Reason: Insomnia Last Admin: 01/30/19 23:14 Dose: 50 mg Enoxaparin Sodium (Lovenox) 30 mg SC DAILY [facility]; Protocol Last Admin: 01/31/19 11:55 Dose: 30 mg - Labs Labs: 01/31/19 06:30 01/31/19 06:30 PT 12.2 SECONDS (9.4-12.5) 01/29/19 13:10 INR 1.08 01/29/19 13:10 APTT 27.7 Seconds (26.9-38.3) 01/29/19 13:10 - Constitutional Appears: Well, Non-toxic, No Acute Distress - Head Exam Head Exam: ATRAUMATIC, NORMAL INSPECTION, NORMOCEPHALIC - Eye Exam Eye Exam: EOMI Pupil Exam: PERRL - ENT Exam ENT Exam: Mucous Membranes Moist - Respiratory Exam Respiratory Exam: Clear to Ausculation Bilateral, NORMAL BREATHING PATTERN. absent: Wheezes, Respiratory Distress - Cardiovascular Exam Cardiovascular Exam: REGULAR RHYTHM, +S1, +S2. absent: Murmur - GI/Abdominal Exam GI & Abdominal Exam: Soft, Normal Bowel Sounds. absent: Tenderness - Extremities Exam Extremities Exam: Normal Inspection. absent: Calf Tenderness, Pedal Edema - Neurological Exam Neurological Exam: Alert, Awake, Oriented x3 - Psychiatric Exam Psychiatric exam: Normal Affect, Normal Mood - Skin Skin Exam: Dry, Intact, Normal Color, Warm Assessment and Plan - Assessment and Plan (Free Text) Assessment: Patient is a 53F with no known significant past medical history, presents to the emergency department with lightheadedness and palpitations. Patient was a code stroke. Admitted to telemetry. Plan: Code Stroke - Aspirin 81mg - Lipitor 40mg - CT head: no intracranial abnormalities - EEG normal awake and drowsy study - pending MRA head and neck bundle - pending MRI brain - ECHO: Atrial septal aneurysmal bulge - Neurology following, pending further imaging and evaluation - Cardiology follow: continue Aspirin 81mg - Fall and aspiration precautions - PT recommends discharge home Iron Deficiency Anemia - Iron supp 324mg BID - Colace daily - Patient's most recent colonoscopy 2-3 years ago was normal PPX GI: not indicated DVT: Lovenox 30mg Dispo: Monitor patient on telemetry. Pending MRI and MRA. Case was discussed and reviewed with Attending Physician, Dr. Joanna Prince <Conrado Marshall - Last Filed: 01/31/19 15:41> Objective - Vital Signs/Intake and Output Vital Signs (last 24 hours): Temp Pulse Resp BP Pulse Ox 98.2 F 64 20 156/82 H 94 L 01/31/19 11:58 01/31/19 11:58 01/31/19 11:58 01/31/19 11:58 01/31/19 06:00 Intake and Output: 01/31/19 01/31/19 06:59 18:59 Intake Total 2392 Balance 2392 - Medications Medications: Current Medications Aspirin (Ecotrin) 81 mg PO DAILY [facility] Last Admin: 01/31/19 09:15 Dose: 81 mg Atorvastatin Calcium (Lipitor) 40 mg PO DAILY [facility] Last Admin: 01/31/19 09:15 Dose: 40 mg Diphenhydramine HCl (Benadryl) 50 mg PO HS PRN PRN Reason: Insomnia Last Admin: 01/30/19 23:14 Dose: 50 mg Docusate Sodium (Colace) 100 mg PO BID [facility] Enoxaparin Sodium (Lovenox) 30 mg SC DAILY [facility]; Protocol Last Admin: 01/31/19 11:55 Dose: 30 mg Ferrous Sulfate (Feosol) 324 mg PO BID [facility] - Labs Labs: 01/31/19 06:30 01/31/19 06:30 PT 12.2 SECONDS (9.4-12.5) 01/29/19 13:10 INR 1.08 01/29/19 13:10 APTT 27.7 Seconds (26.9-38.3) 01/29/19 13:10 Attending/Attestation - Attestation I have personally seen and examined this patient.: Yes I have fully participated in the care of the patient.: Yes I have reviewed all pertinent clinical information, including history, physical exam and plan: Yes Notes (Text): 01/31/19 15:40 53 year old female with past medical history of ?recently diagnosed hypertension, not on any medications, who presented with complaint of transient confusion, trouble with speech and palpitations, now resolved. Admitted for possible TIA r/o CVA. CT head is negative for acute findings. MRI/MRA is still pending for today. Echocardiogram showed atrial septic aneurysmal bulge. Neurology is following and patient is on aspirin and statin. Cardiology evaluation is requested as well. BP was initially elevated but improved without medications. Will monitor for now. Patient noted to have iron deficiency anemia. Patient denies any bleeding. Last EGD/colonoscopy was few years prior. Can start iron supplements on discharge. Recommended outpatient GI follow up. Conrado Marshall MD Hospitalist.
--- NOTE | 2019-01-31 15:48 | CP.PCM.PN ---
<Ellis Connelly - Last Filed: 01/31/19 15:49> Subjective - Date & Time of Evaluation Date of Evaluation: 01/31/19 Time of Evaluation: 06:00 - Subjective Subjective: Patient seen and evaluated bedside. No acute issues overnight. Patient states she feels fine, denies any complaints. NO headaches, change in vision, or any other complaints at this time. Objective - Vital Signs/Intake and Output Vital Signs (last 24 hours): Temp Pulse Resp BP Pulse Ox 98.2 F 64 20 156/82 H 94 L 01/31/19 11:58 01/31/19 11:58 01/31/19 11:58 01/31/19 11:58 01/31/19 06:00 Intake and Output: 01/31/19 01/31/19 06:59 18:59 Intake Total 2392 Balance 2392 - Medications Medications: Current Medications Aspirin (Ecotrin) 81 mg PO DAILY [facility] Last Admin: 01/31/19 09:15 Dose: 81 mg Atorvastatin Calcium (Lipitor) 40 mg PO DAILY [facility] Last Admin: 01/31/19 09:15 Dose: 40 mg Diphenhydramine HCl (Benadryl) 50 mg PO HS PRN PRN Reason: Insomnia Last Admin: 01/30/19 23:14 Dose: 50 mg Docusate Sodium (Colace) 100 mg PO BID [facility] Enoxaparin Sodium (Lovenox) 30 mg SC DAILY [facility]; Protocol Last Admin: 01/31/19 11:55 Dose: 30 mg Ferrous Sulfate (Feosol) 324 mg PO BID [facility] - Labs Labs: 01/31/19 06:30 01/31/19 06:30 PT 12.2 SECONDS (9.4-12.5) 01/29/19 13:10 INR 1.08 01/29/19 13:10 APTT 27.7 Seconds (26.9-38.3) 01/29/19 13:10 - Constitutional Appears: Non-toxic, No Acute Distress - Eye Exam Eye Exam: EOMI, Normal appearance, PERRL - Neurological Exam Neurological Exam: Alert, Awake, Normal Gait, Oriented x3 Neuro motor strength exam: Left Upper Extremity: 5, Right Upper Extremity: 5, Left Lower Extremity: 5, Right Lower Extremity: 5 Assessment and Plan - Assessment and Plan (Free Text) Plan: TIA rule out ichemic stroke - no focal deficits appreciated - EKG NSR w/ no ST/T wave changes - CT head: no intracranial abnormalities - MRA head and neck bundle pending - MRI brain - ECHO - EEG normal - Aspirin 81mg - Lipitor 40mg <Nile Lantigua - Last Filed: 01/31/19 16:16> Objective - Vital Signs/Intake and Output Vital Signs (last 24 hours): Temp Pulse Resp BP Pulse Ox 98.2 F 73 20 156/82 H 94 L 01/31/19 11:58 01/31/19 14:00 01/31/19 11:58 01/31/19 11:58 01/31/19 06:00 Intake and Output: 01/31/19 01/31/19 06:59 18:59 Intake Total 2392 Balance 2392 - Medications Medications: Current Medications Aspirin (Ecotrin) 81 mg PO DAILY [facility] Last Admin: 01/31/19 09:15 Dose: 81 mg Atorvastatin Calcium (Lipitor) 40 mg PO DAILY [facility] Last Admin: 01/31/19 09:15 Dose: 40 mg Diphenhydramine HCl (Benadryl) 50 mg PO HS PRN PRN Reason: Insomnia Last Admin: 01/30/19 23:14 Dose: 50 mg Docusate Sodium (Colace) 100 mg PO BID [facility] Enoxaparin Sodium (Lovenox) 30 mg SC DAILY [facility]; Protocol Last Admin: 01/31/19 11:55 Dose: 30 mg Ferrous Sulfate (Feosol) 324 mg PO BID [facility] - Labs Labs: 01/31/19 06:30 01/31/19 06:30 PT 12.2 SECONDS (9.4-12.5) 01/29/19 13:10 INR 1.08 01/29/19 13:10 APTT 27.7 Seconds (26.9-38.3) 01/29/19 13:10 Attending/Attestation - Attestation I have personally seen and examined this patient.: Yes I have fully participated in the care of the patient.: Yes I have reviewed all pertinent clinical information, including history, physical exam and plan: Yes Notes (Text): I agree with the assessment and plan. TIA/Stroke work-up pending. She is clausterphobic. Will attempt MRI after Ativan.
--- NOTE | 2019-01-31 17:32 | CON ---
DATE: 01/31/2019 CARDIOLOGY CONSULTATION REASON FOR CONSULTATION: Palpitation and possible TIA. HISTORY OF PRESENT ILLNESS: The patient is 53-year-old female, who has no significant past medical history, who was working with a friend when she started to treat palpitation and difficulty articulating her speech. The patient denies any dizziness or syncope at that time. The patient denies any history of stroke in the past. SOCIAL HISTORY: Nonsmoker, nondrinker. MEDICATIONS: Aspirin 81 mg once a day, Lipitor 40 mg once a day. REVIEW OF SYSTEMS: No fever or chills. No dizziness or syncope and no recent fall. PHYSICAL EXAMINATION: GENERAL: The patient is a middle-aged female, who does not appear to be in any distress. VITAL SIGNS: Blood pressure 130/80, heart rate 70, temperature 97.9, respirations 18. HEENT: Normocephalic. CHEST: Clear. HEART: S1, S2 regular. ABDOMEN: Soft. EXTREMITIES: No edema. LABORATORY DATA: Today's SMA-7 is within normal limits except for anion gap of 8 and creatinine 0.5. One set of troponin was negative. TSH level and free T4 are within normal limits. PT, PTT, and INR are within normal limits. EKG revealed normal sinus rhythm, cannot rule out anterior infarct, heart rate 84. Echocardiograph study revealed normal ejection fraction, mild dilated left atrium, mild pulmonary hypertension. The atrial septum shows aneurysmal pulse toward the left atrium. Head CT scan without contrast, no acute intracranial findings. Chest x-ray was reviewed and is unremarkable. ASSESSMENT: 1. Rule out transient ischemic attack. 2. History of palpitation, rule out paroxysmal atrial fibrillation. RECOMMENDATIONS: Continue aspirin 81 mg once a day, Lipitor 40 mg once a day. Obtain a carotid Doppler and consider repeat head CT scan, in the meantime, I will start the patient on prophylactic subcutaneous Lovenox at 30 mg once a day. Alexandro Colón MD [facility] # [id number]
[2019-01-31 23:21] VITALS: RESP 18
[2019-02-01 08:10] LABS: HEMOGLOBIN 10.4 g/dL (12.0-16.0); MEAN CORPUSCULAR HEMOGLOBIN 24.4 pg (25.0-35.0); MEAN CORPUSCULAR HGB CONC 30.1 g/dl (31.0-37.0); RBC 4.27 10^6/uL (3.5-6.1); RED CELL DISTRIBUTION WIDTH 16.1 % (11.5-14.5); WHITE BLOOD COUNT 5.2 10^3/uL (4.5-11.0)
[2019-02-01 08:11] LABS: ALB/GLOB RATIO 1.1 (1.1-1.8); ALBUMIN 3.5 g/dL (3.0-4.8); ALT/SGPT 10 U/L (7-56); AST/SGOT 23 U/L (14-36); BLOOD UREA NITROGEN 14 mg/dL (7-21); CALCIUM 9.2 mg/dL (8.4-10.5); GFR NON-AFRICAN AMERICAN > 60
[2019-02-01] MEDS: Enoxaparin 30 mg Syringe SC SCH (10:22)
[2019-02-01 12:01] VITALS: BP 137/72; PULSE 77; TEMP 97.9
[2019-02-01 14:07] VITALS: O2SAT 98
--- NOTE | 2019-02-01 18:15 | CP.PCM.DIS ---
<Gunnar Pettit - Last Filed: 02/01/19 17:55> Provider - Provider Date of Admission: 01/29/19 13:46 Attending physician: Conrado Marshall MD Primary care physician: Tammy Hurst DO Consults: 01/29/19 13:04 Stroke Team Consult Stat Comment: Consulting Provider: Neurohospitalist Consulting Physician: NEUROHOSP Neurohospitalist for Consult: Nile Lantigua Neurohospitalist for Consult: Trent Davila Reason for Consult: confusion, talking differently, palpitations, htn 01/31/19 07:39 Cardiology Consult Routine Comment: Consulting Provider: Alexandro Colón Consulting Physician: Alexandro Colón Reason for Consult: echo showed atrial septal aneurysmal bulge Time Spent in preparation of Discharge (in minutes): 35 Hospital Course - Lab Results Lab Results: Most Recent Lab Values WBC 5.2 10^3/uL (4.5-11.0) 02/01/19 07:00 RBC 4.27 10^6/uL (3.5-6.1) 02/01/19 07:00 Hgb 10.4 g/dL (12.0-16.0) L 02/01/19 07:00 Hct 34.6 % (36.0-48.0) L 02/01/19 07:00 MCV 81.0 fl (80.0-105.0) 02/01/19 07:00 MCH 24.4 pg (25.0-35.0) L 02/01/19 07:00 MCHC 30.1 g/dl (31.0-37.0) L 02/01/19 07:00 RDW 16.1 % (11.5-14.5) H 02/01/19 07:00 Plt Count 389 10^3/uL (120.0-450.0) 02/01/19 07:00 MPV 10.0 fl (7.0-11.0) 02/01/19 07:00 Neut % (Auto) 64.5 % (50.0-68.0) 01/29/19 13:10 Lymph % (Auto) 25.7 % (22.0-35.0) 01/29/19 13:10 [place] % (Auto) 6.0 % (1.0-6.0) 01/29/19 13:10 Eos % (Auto) 3.1 % (1.5-5.0) 01/29/19 13:10 Baso % (Auto) 0.7 % (0.0-3.0) 01/29/19 13:10 Lymph # (Auto) 1.8 (1.2-3.4) 01/29/19 13:10 [place] # (Auto) 0.4 (0.1-0.6) 01/29/19 13:10 Eos # (Auto) 0.2 (0.0-0.7) 01/29/19 13:10 Baso # (Auto) 0.05 K/mm3 (0.0-2.0) 01/29/19 13:10 Absolute Neuts (auto) 4.40 (1.4-6.5) 01/29/19 13:10 Retic Count 0.98 % (0.5-1.5) 01/30/19 08:05 PT 12.2 SECONDS (9.4-12.5) 01/29/19 13:10 INR 1.08 01/29/19 13:10 APTT 27.7 Seconds (26.9-38.3) 01/29/19 13:10 Sodium 142 mmol/L (132-148) 02/01/19 07:00 Potassium 4.0 mmol/L (3.6-5.0) 02/01/19 07:00 Chloride 105 mmol/L (98-107) 02/01/19 07:00 Carbon Dioxide 30 mmol/L (21-33) 02/01/19 07:00 Anion Gap 11 (10-20) 02/01/19 07:00 BUN 14 mg/dL (7-21) 02/01/19 07:00 Creatinine 0.6 mg/dl (0.7-1.2) L 02/01/19 07:00 Est GFR ( Amer) > 60 02/01/19 07:00 Est GFR (Non-Af Amer) > 60 02/01/19 07:00 POC Glucose (mg/dL) 129 mg/dL (65-110) H 01/30/19 11:06 Random Glucose 78 mg/dL (70-110) 02/01/19 07:00 Hemoglobin A1c 5.9 % (4.2-6.5) 01/29/19 13:10 Calcium 9.2 mg/dL (8.4-10.5) 02/01/19 07:00 Phosphorus 4.0 mg/dL (2.5-4.5) 02/01/19 07:00 Magnesium 2.1 mg/dL (1.7-2.2) 02/01/19 07:00 Iron 26 ug/dL (45-180) L 01/30/19 08:05 TIBC 362 ug/dL (265-497) 01/30/19 08:05 % Saturation 7 % (20-55) L 01/30/19 08:05 Ferritin 4.7 ng/mL 01/30/19 08:05 Total Bilirubin 0.1 mg/dL (0.2-1.3) L 02/01/19 07:00 AST 23 U/L (14-36) 02/01/19 07:00 ALT 10 U/L (7-56) 02/01/19 07:00 Alkaline Phosphatase 73 U/L (38-126) 02/01/19 07:00 Troponin I < 0.01 ng/mL 01/29/19 13:10 Total Protein 6.7 g/dL (5.8-8.3) 02/01/19 07:00 Albumin 3.5 g/dL (3.0-4.8) 02/01/19 07:00 Globulin 3.2 gm/dL 02/01/19 07:00 Albumin/Globulin Ratio 1.1 (1.1-1.8) 02/01/19 07:00 Triglycerides 45 mg/dL (35-160) 01/29/19 13:10 Cholesterol 158 mg/dL (130-200) 01/29/19 13:10 LDL Cholesterol Direct 73 mg/dL (0-129) 01/29/19 13:10 HDL Cholesterol 81 mg/dL (29-60) H 01/29/19 13:10 Vitamin B12 324 pg/mL (239-931) 01/29/19 14:30 25-OH Vitamin D Total 45.5 NG/ML (30.0-100.0) 01/29/19 15:00 Folate > 20.0 ng/mL 01/29/19 14:30 Homocysteine 8.6 umol/L (4.7-12.6) 01/29/19 14:30 Free T4 0.84 ng/dL (0.78-2.19) 01/29/19 14:30 TSH 3rd Generation 1.32 mIU/mL (0.46-4.68) 01/29/19 14:30 Blood Type B NEGATIVE 01/29/19 15:39 Blood Type Confirm B NEGATIVE 01/29/19 18:05 Antibody Screen Negative 01/29/19 15:39 BBK History Checked No verified bt 01/29/19 15:39 - Hospital Course Hospital Course: Gunnar Pettit, PGY1 Discharge Summary for Dr. Marshall Patient is a 53 year old female with PMHx bariatric surgery presented to the ED with new onset palpitations and lightheadedness that started in the morning. Patient stated that in the morning she noticed she was having difficulty balancing herself and felt lightheaded, she denied any loss of consciousness or fall. When attempting to speak to her coworker she had difficulty projecting her voice. She did not endorse facial drooping, headaches, blurred or changes in vision, chest pain, or shortness of breath. In the ED, code stroke was called for the patient. Neurology was placed on consult immediately. CT Head showed no acute findings. CXR was negative. Lipid panel was wnl. Patient was placed on aspirin and statin on admission. MRI brain with MRA Head/Neck was ordered. Patient was not a tPA candidate. Her symptoms resolved on admission to the hospital. She was admitted for TIA. Incidentally, patient found to be anemic on admission. However, Hgb was stable and with iron studies it was determined she had iron deficiency anemia, subsequently placed on iron supplementation with feosol. 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 As a result of this finding, cardio was consulted. As per cardio recs, patient may follow up as outpatient given this finding and be started on aspirin 81mg daily. No further intervention from cardio. PT also recommended that patient is cleared to go home and had no weakness or difficulty with gait. She is also tolerating diet well with speech/swallow difficulty. As per neuro, patient was pending MRI/MRA however it was not done the previous day due to the large volume of patients requiring MRI. Patient was anxious to go home. This was discussed with neuro. Given that her symptoms are improved and she is at her baseline with grossly negative neuro exam and no neuro deficits, neuro recommended patient get an MRI as outpatient (given script). She may also follow up with her PMD as outpatient and go to her GI physician for her anemia. She will also establish care outside with a slab lifting supervisor for her atrial septal anuerysm findings on echo. On discharge, she will leave on aspirin, lipitor, feosol, and norvasc. Upon reviewing all vitals, labs, and imaging patient is hemodynamically stable for discharge. Discharge Exam - Head Exam Head Exam: ATRAUMATIC, NORMAL INSPECTION, NORMOCEPHALIC - Eye Exam Eye Exam: EOMI, Normal appearance, PERRL Pupil Exam: NORMAL ACCOMODATION, PERRL - Neck Exam Neck exam: Normal Inspection - Respiratory Exam Respiratory Exam: Clear to PA & Lateral, UNREMARKABLE. absent: Rales, Rhonchi, Wheezes, Stridor - Cardiovascular Exam Cardiovascular Exam: RRR, +S1, +S2 - GI/Abdominal Exam GI & Abdominal Exam: Normal Bowel Sounds, Soft. absent: Bruit, Rebound, Tenderness - Extremities Exam Extremities exam: normal capillary refill, normal inspection, pedal pulses present - Neurological Exam Neurological exam: Alert, CN II-XII Intact, Normal Gait, Oriented x3, Reflexes Normal - Psychiatric Exam Psychiatric exam: Normal Affect, Normal Mood - Skin Skin Exam: Dry, Intact, Normal Color, Warm Discharge Plan - Discharge Medications Prescriptions: amLODIPine [Norvasc] 2.5 mg PO DAILY #30 tab Aspirin [Ecotrin] 81 mg PO DAILY #14 tabec Atorvastatin [Lipitor] 10 mg PO DIN #30 tab Ferrous Sulfate [Feosol] 324 mg PO BID #60 ect - Follow Up Plan Condition: FAIR Disposition: HOME/ ROUTINE Instructions: High Blood Pressure in Adults, Heart Healthy Diet, Anemia Caused by Low Iron, Adult (DC), Transient Ischemic Attack (DC), Diabetes Diet Additional Instructions: Please follow up with your Primary Care Doctor (Dr. Hurst) within 3-4 days of discharge. You were given a script for a MRI brain and MRA head/neck - please have this test performed as soon as you can. Please follow up with neurologist, Dr Lantigua - after you have had your MRI, please follow-up with him in 7 days. His contact info has been provided. You should follow up with your G[facility]enterologist ([facility]) on an outpatient basis because of your anemia (low blood count). It is advised you establish care with a slab lifting supervisor as you were found to have an atrial septal aneurysm on your echocardiogram. You are being prescribed these medications, please take as prescribed: - Aspirin 81mg once daily - Lipitor 10mg once every night (a side effect is muscle cramps) - Feosol 324mg once morning and once at night (constipation is a side effect for which you can take over the counter colace or miralax) - Norvasc 2.5mg once in the morning at 10AM (this is for your high blood pressure) Please return to the nearest emergency department if your symptoms worsen or reoccur. Referrals: Alexandro Colón MD [Staff Provider] - Nile Lantigua MD [Staff Provider] - Tammy Hurst DO [Primary Care Provider] - 7 Days <Conrado Marshall - Last Filed: 02/02/19 07:26> Provider - Provider Date of Admission: 01/29/19 13:46 Attending physician: Conrado Marshall MD Primary care physician: Tammy Hurst DO Consults: 01/29/19 13:04 Stroke Team Consult Stat Comment: Consulting Provider: Neurohospitalist Consulting Physician: NEUROHOSP Neurohospitalist for Consult: Nile Lantigua Neurohospitalist for Consult: Trent Davila Reason for Consult: confusion, talking differently, palpitations, htn 01/31/19 07:39 Cardiology Consult Routine Comment: Consulting Provider: Alexandro Colón Consulting Physician: Alexandro Colón Reason for Consult: echo showed atrial septal aneurysmal bulge Hospital Course - Lab Results Lab Results: Most Recent Lab Values WBC 5.2 10^3/uL (4.5-11.0) 02/01/19 07:00 RBC 4.27 10^6/uL (3.5-6.1) 02/01/19 07:00 Hgb 10.4 g/dL (12.0-16.0) L 02/01/19 07:00 Hct 34.6 % (36.0-48.0) L 02/01/19 07:00 MCV 81.0 fl (80.0-105.0) 02/01/19 07:00 MCH 24.4 pg (25.0-35.0) L 02/01/19 07:00 MCHC 30.1 g/dl (31.0-37.0) L 02/01/19 07:00 RDW 16.1 % (11.5-14.5) H 02/01/19 07:00 Plt Count 389 10^3/uL (120.0-450.0) 02/01/19 07:00 MPV 10.0 fl (7.0-11.0) 02/01/19 07:00 Neut % (Auto) 64.5 % (50.0-68.0) 01/29/19 13:10 Lymph % (Auto) 25.7 % (22.0-35.0) 01/29/19 13:10 [place] % (Auto) 6.0 % (1.0-6.0) 01/29/19 13:10 Eos % (Auto) 3.1 % (1.5-5.0) 01/29/19 13:10 Baso % (Auto) 0.7 % (0.0-3.0) 01/29/19 13:10 Lymph # (Auto) 1.8 (1.2-3.4) 01/29/19 13:10 [place] # (Auto) 0.4 (0.1-0.6) 01/29/19 13:10 Eos # (Auto) 0.2 (0.0-0.7) 01/29/19 13:10 Baso # (Auto) 0.05 K/mm3 (0.0-2.0) 01/29/19 13:10 Absolute Neuts (auto) 4.40 (1.4-6.5) 01/29/19 13:10 Retic Count 0.98 % (0.5-1.5) 01/30/19 08:05 PT 12.2 SECONDS (9.4-12.5) 01/29/19 13:10 INR 1.08 01/29/19 13:10 APTT 27.7 Seconds (26.9-38.3) 01/29/19 13:10 Sodium 142 mmol/L (132-148) 02/01/19 07:00 Potassium 4.0 mmol/L (3.6-5.0) 02/01/19 07:00 Chloride 105 mmol/L (98-107) 02/01/19 07:00 Carbon Dioxide 30 mmol/L (21-33) 02/01/19 07:00 Anion Gap 11 (10-20) 02/01/19 07:00 BUN 14 mg/dL (7-21) 02/01/19 07:00 Creatinine 0.6 mg/dl (0.7-1.2) L 02/01/19 07:00 Est GFR ( Amer) > 60 02/01/19 07:00 Est GFR (Non-Af Amer) > 60 02/01/19 07:00 POC Glucose (mg/dL) 129 mg/dL (65-110) H 01/30/19 11:06 Random Glucose 78 mg/dL (70-110) 02/01/19 07:00 Hemoglobin A1c 5.9 % (4.2-6.5) 01/29/19 13:10 Calcium 9.2 mg/dL (8.4-10.5) 02/01/19 07:00 Phosphorus 4.0 mg/dL (2.5-4.5) 02/01/19 07:00 Magnesium 2.1 mg/dL (1.7-2.2) 02/01/19 07:00 Iron 26 ug/dL (45-180) L 01/30/19 08:05 TIBC 362 ug/dL (265-497) 01/30/19 08:05 % Saturation 7 % (20-55) L 01/30/19 08:05 Ferritin 4.7 ng/mL 01/30/19 08:05 Total Bilirubin 0.1 mg/dL (0.2-1.3) L 02/01/19 07:00 AST 23 U/L (14-36) 02/01/19 07:00 ALT 10 U/L (7-56) 02/01/19 07:00 Alkaline Phosphatase 73 U/L (38-126) 02/01/19 07:00 Troponin I < 0.01 ng/mL 01/29/19 13:10 Total Protein 6.7 g/dL (5.8-8.3) 02/01/19 07:00 Albumin 3.5 g/dL (3.0-4.8) 02/01/19 07:00 Globulin 3.2 gm/dL 02/01/19 07:00 Albumin/Globulin Ratio 1.1 (1.1-1.8) 02/01/19 07:00 Triglycerides 45 mg/dL (35-160) 01/29/19 13:10 Cholesterol 158 mg/dL (130-200) 01/29/19 13:10 LDL Cholesterol Direct 73 mg/dL (0-129) 01/29/19 13:10 HDL Cholesterol 81 mg/dL (29-60) H 01/29/19 13:10 Vitamin B12 324 pg/mL (239-931) 01/29/19 14:30 25-OH Vitamin D Total 45.5 NG/ML (30.0-100.0) 01/29/19 15:00 Folate > 20.0 ng/mL 01/29/19 14:30 Homocysteine 8.6 umol/L (4.7-12.6) 01/29/19 14:30 Free T4 0.84 ng/dL (0.78-2.19) 01/29/19 14:30 TSH 3rd Generation 1.32 mIU/mL (0.46-4.68) 01/29/19 14:30 Blood Type B NEGATIVE 01/29/19 15:39 Blood Type Confirm B NEGATIVE 01/29/19 18:05 Antibody Screen Negative 01/29/19 15:39 BBK History Checked No verified bt 01/29/19 15:39 Attending/Attestation - Attestation I have personally seen and examined this patient.: Yes I have fully participated in the care of the patient.: Yes I have reviewed all pertinent clinical information, including history, physical exam and plan: Yes Notes (Text): 02/01/19 53 year old female with past medical history of ?recently diagnosed hypertension, not on any medications, who presented with complaint of transient confusion, trouble with speech and palpitations, now resolved. She was admitted for possible TIA r/o CVA. She had CT head which was negative for acute findings. Echocardiogram showed atrial septic aneurysmal bulge. Cardiology recommended aspirin. Patient was on statin as well. Started on norvasc for hypertension and iron supplements for anemia. MRI/MRA was ordered but not able to be done initially due to patient's claustrophobia. She later agreed to have it done with ativan being given prior. However MRI was backed up with emergent cases x 2 days and was not able to be performed. She was cleared by neurology for d/c with outpatient MRI. Patient is discharged home to follow up with pmd. Follow up with neurology for outpatient MRI. Continue with aspirin and statin. Follow up with pmd/GI for oupatient anemia workup. Conrado Marshall MD Hospitalist.
== END 2019-02-01 14:17 | disposition home or self-care (01) ==
LOC: ED 12:51 → ERH 13:46 → 2RSO 16:56
PROVIDERS: ADMIT Internal Medicine; ATTEND Internal Medicine
DX: G45.9 Transient cerebral ischemic attack, unspecified (principal); D50.9 Iron deficiency anemia, unspecified; I10 Essential (primary) hypertension; R00.2 Palpitations; F40.240 Claustrophobia; Z79.82 Long term (current) use of aspirin; Z98.84 Bariatric surgery status
CPT/HCPCS: 36415; 70450; 71045; 80053; 80061; 81025; 82306; 82607; 82728; 82746; 82948; 83036; 83090; 83540; 83550; 83735; 84100; 84439; 84443; 84484; 85025; 85027; 85044; 85610; 85730; 86850; 86900; 93005; 93306; 95812; 97116; 97162; 99285; G0378; G8978; G8979; G8980; J1650; J7030